=== PATIENT | male | born 1955 | race Caucasian/White ===

== ENCOUNTER 2024-12-24 20:05 | Emergency (ER) | payer MEDICARE | END 2024-12-24 21:30 | disposition home or self-care (01) | LOC: JP.ED 20:05 | DX: S30.860A Insect bite (nonvenomous) of lower back and pelvis, initial encounter (principal); I25.2 Old myocardial infarction; Z79.82 Long term (current) use of aspirin; Z79.899 Other long term (current) drug therapy; Z90.49 Acquired absence of other specified parts of digestive tract; Z20.818 Contact with and (suspected) exposure to other bacterial communicable diseases; W57.XXXA Bitten or stung by nonvenomous insect and other nonvenomous arthropods, initial encounter | CPT/HCPCS: 99281; 99283 ==

== ENCOUNTER 2025-01-28 18:08 | Emergency (ER) | payer MEDICARE | END 2025-01-28 19:27 | disposition home or self-care (01) | LOC: JP.ED 18:08 | DX: S20.361A Insect bite (nonvenomous) of right front wall of thorax, initial encounter (principal); S30.860A Insect bite (nonvenomous) of lower back and pelvis, initial encounter; S70.362A Insect bite (nonvenomous), left thigh, initial encounter; Z90.49 Acquired absence of other specified parts of digestive tract; W57.XXXA Bitten or stung by nonvenomous insect and other nonvenomous arthropods, initial encounter | CPT/HCPCS: 99281 ==